=== PATIENT | female | born 1975 | race African-American/Black ===

== ENCOUNTER 2021-09-07 13:48 | Emergency (ER) | payer BC ==
--- NOTE | 2021-09-07 14:22 | EDM.PDOC ---
ED HPI GENERAL MEDICAL PROBLEM - General Chief Complaint: Gastrointestinal Problem Stated Complaint: DIARRHEA HEADACHE JOINT PAIN Time Seen by Provider: 09/07/21 14:01 Source of Information: Reports: Patient, RN Notes Reviewed History Limitations: Reports: No Limitations - History of Present Illness INITIAL COMMENTS - FREE TEXT/NARRATIVE: Patient is a 46-year-old female who presents to the ER for evaluation of her nausea and vomiting/diarrhea along with joint pain. States that she has a history of arthritis, from . Patient states that she is from [place], and ate at the [employer] 2 days ago, and has been having nausea and vomiting with some diarrhea since then. States that she can eat, but feels very nauseated and soon developed vomiting and diarrhea shortly after eating. Patient did try to go to the [facility] for Covid screen today as she will not have a nasal swab performed due to having 1 done a while back and this resulted in a bloody nose for about 4 days afterwards. Not having any fevers or chills, may be a slight cough associated with this. - Related Data Home Meds: Home Meds Ciprofloxacin [Ciprofloxacin HCl] 500 mg PO BID #10 tab 09/07/21 [Rx] Promethazine [Phenergan] 25 mg PO Q6H PRN #12 tab 09/07/21 [Rx] Past Medical History Other [employer] History: fibroids, tubal ligation 1999 Musculoskeletal History: Reports: Other (See Below) Other Musculoskeletal History: arthritis Social & Family History - Tobacco Use Tobacco Use Status *Q: Never Tobacco User Second Hand Smoke Exposure: No - Caffeine Use Caffeine Use: Reports: Coffee - Recreational Drug Use Recreational Drug Use: No ED ROS GENERAL - Review of Systems Review Of Systems: Comprehensive ROS is negative, except as noted in HPI. ED EXAM, GI/ABD - Physical Exam Exam: See Below Exam Limited By: No Limitations General Appearance: Alert, WD/WN, No Apparent Distress Respiratory/Chest: No Respiratory Distress, Lungs Clear, Normal Breath Sounds, No Accessory Muscle Use, Chest Non-Tender Cardiovascular: Normal Peripheral Pulses, Regular Rate, Rhythm, No Edema GI/Abdominal Exam: Normal Bowel Sounds, Soft, Non-Tender, No Distention, No Mass Extremities: Normal Inspection, Normal Capillary Refill Neurological: Alert, Oriented, Normal Cognition, No Motor/Sensory Deficits Psychiatric: Normal Affect, Normal Mood Skin Exam: Warm, Dry, Intact, Normal Color, No Rash Course - Vital Signs Last Recorded V/S: Last Vital Signs Temp 97.8 F 09/07/21 13:57 Pulse 81 09/07/21 13:57 Resp 16 09/07/21 13:57 BP 126/88 09/07/21 13:57 Pulse Ox 100 09/07/21 13:57 - Re-Assessments/Exams Free Text/Narrative Re-Assessment/Exam: 09/07/21 14:21 Patient presents to the ER for the evaluation of her nausea/vomiting/diarrhea. I did order a Covid and flu swab initially but the patient refused this as she will not have a nasopharyngeal swab performed. So this has been canceled. We will give the patient some tablets of Phenergan, and ciprofloxacin for 5 days to see if this helps relieve some of the symptoms. Patient will go to testing site tomorrow to get a oral Covid swab performed. Departure - Departure Time of Disposition: 14:21 Disposition: Home, Self-Care 01 Condition: Good Clinical Impression: Food poisoning, Suspected 2018-nCoV infection - Discharge Information *PRESCRIPTION DRUG MONITORING PROGRAM REVIEWED*: No *COPY OF PRESCRIPTION DRUG MONITORING REPORT IN PATIENT HARRIS: No Prescriptions: Ciprofloxacin [Ciprofloxacin HCl] 500 mg PO BID #10 tab Promethazine [Phenergan] 25 mg PO Q6H PRN #12 tab PRN Reason: Nausea Instructions: Preventing Foodborne Illness, Symptoms of COVID-19 - CDC (11/01/2020) Forms: ED Department Discharge, ED Return to Work/School Form Additional Instructions: You were evaluated in the ER today for your nausea and vomiting and diarrhea. It is likely that you could have developed some food poisoning and you have been started on some antinausea medications and antibiotics, please take these as prescribed. This medication was electronically sent to the [place] [facility] located in the [employer] [facility]. You will need to have an outpatient swab performed for ongoing investigation regarding COVID 19. You can contact the [facility] unit for further management of this if you prefer the oral swab be obtained. Do not hesitate to return to the ER at any time if symptoms change or worsen. Sepsis Event Note (ED) - Evaluation Sepsis Screening Result: No Definite Risk - Focused Exam Vital Signs: Vital Signs Temp Pulse Resp BP Pulse Ox 09/07/21 13:57 97.8 F 81 16 126/88 100
== END 2021-09-07 14:33 | disposition home or self-care (01) ==
LOC: JD.ED 13:48
DX: T78.1XXA Other adverse food reactions, not elsewhere classified, initial encounter (principal)
CPT/HCPCS: 99283